=== PATIENT | female | born 1980 | race Two or more races ===

== ENCOUNTER 2019-05-29 20:35 | Emergency (ER) | payer OTHER ==
[~2019-05-29] VITALS: Ht 170.2 cm; Wt 127.0 kg
[2019-05-29] MEDS ORDERED: ACID CONTROL150 MG (20:59)
[2019-05-29] MEDS ORDERED: NITROFURANTOIN50 MG (21:00)
[2019-05-29] MEDS ORDERED: LASIX20 MG (21:01)
[2019-05-29] MEDS ORDERED: CARVEDILOL25 MG (21:01)
[2019-05-29] MEDS ORDERED: AMITRIPTYLINE 75 MG (21:02)
[2019-05-29] MEDS ORDERED: PRINIVIL10 MG (21:02)
[2019-05-30] MEDS ORDERED: ZYNCOF 20-400120 ML PO (05:58)
[2019-05-30] MEDS ORDERED: SYMBICORT 16010.2 GM IH (05:58)
[2019-05-30] MEDS ORDERED: XOPENEX0.63 MG/3 IH (05:58)
[2019-05-30] MEDS ORDERED: XOPENEX HFA15 GM IH (05:58)
== END 2019-05-30 06:15 | disposition home or self-care (01) ==
LOC: ER 20:35
DX: J45.998 Other asthma (principal); R00.2 Palpitations